=== PATIENT | male | born 1980 | race Caucasian/White ===

== ENCOUNTER 2019-05-15 17:30 | Emergency (ER) | payer SELFPAY ==
[2019-05-15 17:52] VITALS: BP 144/100
--- NOTE | 2019-05-15 19:27 | UC ---
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 HE THEN KICKED THE CURB ON THE WAY BACK ACCIDENTALLY AFTER WHICH HE DROPPED A BOX ON IT. WOKE UP THIS MORNING WITH INCREASING PAIN AND SWELLING OF THE FOOT. - History of Current Complaint Chief Complaint: UCLowerExtremity Stated Complaint: FOOT INJURY Time Seen by Provider: 05/15/19 18:36 Hx Obtained From: Patient Onset/Duration: Sudden Onset, Lasting Days - 1 DAY, Still Present Severity Initially: Moderate Severity Currently: Moderate Pain Intensity: 2 Pain Scale Used: 0-10 Numeric Aggravating Factor(s): Standing, Ambulation Alleviating Factor(s): Rest, Elevation Able to Bear Weight: Yes - ON HEEL WITH PAIN - Allergies/Home Medications Allergies/Adverse Reactions: Allergies Allergy/AdvReac Type Severity Reaction Status Date / Time codeine Allergy GI Upset Verified 05/15/19 17:54 Tree Nuts Allergy Swelling Verified 05/15/19 17:54 Home Medications: Home Medications Lisinopril TAB* [Prinivil TAB 10 MG*] 20 mg PO DAILY 05/15/19 [History Confirmed 05/15/19] PMH/Surg Hx/FS Hx/Imm Hx Cardiovascular History: Hypertension - Surgical History Surgical History: None - Family History Known Family History: Positive: Non-Contributory - Social History Alcohol Use: Weekly Alcohol Amount: 2 /week Substance Use Type: None Smoking Status (MU): Former Smoker Type: Cigarettes Review of Systems All Other Systems Reviewed And Are Negative: Yes Constitutional: Positive: Negative Respiratory: Positive: Negative Cardiovascular: Positive: Negative Gastrointestinal: Positive: Negative Musculoskeletal: Positive: Arthralgia, Edema Physical Exam Triage Information Reviewed: Yes Appearance: Well-Appearing, No Pain Distress, Well-Nourished Vital Signs: Initial Vital Signs Temp 97.6 F 05/15/19 17:47 Pulse 94 05/15/19 17:47 Resp 16 05/15/19 17:47 BP 144/100 05/15/19 17:47 Pulse Ox 99 05/15/19 17:47 Vital Signs Reviewed: Yes Eyes: Positive: Conjunctiva Clear ENT: Positive: Hearing grossly normal Neck: Positive: Supple Respiratory: Positive: No respiratory distress, No accessory muscle use Cardiovascular: Positive: Pulses Normal Musculoskeletal: Positive: Edema @, Other: - TTP RIGHT 5TH METATARSAL Neurological: Positive: Alert Psychological: Positive: Age Appropriate Behavior Skin: Negative: Rashes Diagnostics - Radiology RIGHT FOOT XRAYS Radiology Interpretation Completed By: ED Physician Summary of Radiographic Findings: OBLIQUE MILDLY DISPLACED FRACTURE OF THE FIFTH METATARSAL Lower Extremity Course/Dx - Course Course Of Treatment: X-RAY OF THE RIGHT FOOT SHOWS AN OBLIQUE MILDLY DISPLACED FRACTURE OF THE FIFTH METATARSAL ON MY INITIAL INTERPRETATION. RADIOLOGY READ PENDING. MATT WRAP AND CAM BOOT APPLIED BY RN. CRUTCHES DISPENSED. PATIENT IS TO BE NONWEIGHTBEARING. FOLLOW-UP WITH ORTHOPEDICS. IBUPROFEN NEEDED FOR DISCOMFORT. HYDROCODONE FOR BREAKTHROUGH PAIN. 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 REFERENCE #: [id number]. - Differential Dx/Diagnosis Provider Diagnosis: Displaced fracture of fifth metatarsal bone, right foot, initial encounter for closed fracture Discharge ED - Sign-Out/Discharge Documenting (check all that apply): Patient Departure All imaging exams completed and their final reports reviewed: No - Discharge Plan Condition: Stable Disposition: HOME Prescriptions: HYDROcodone/ACETAMIN 5-325 MG* [[place] 5-325 TAB*] 1 tab PO Q6H PRN #20 tab MDD 4 PRN Reason: Pain Ibuprofen TAB* [Motrin TAB* 600 MG] 1 tab PO Q6H PRN #30 tab PRN Reason: Pain Patient Education Materials: Foot Fracture in Adults (ED) Referrals: Luis Mayorga MD [Medical Doctor] - 2 Days Additional Instructions: RIGHT FOOT X-RAY SHOWS AN OBLIQUE MILDLY DISPLACED FRACTURE OF THE FIFTH METATARSAL ON MY INITIAL INTERPRETATION. WE WILL CALL YOU TOMORROW IF THE RADIOLOGY READ DIFFERS. WEAR THE CAM BOOT AT ALL TIMES UNTIL SEEN BY ORTHOPEDICS. YOU ARE TO BE NONWEIGHTBEARING. USE THE CRUTCHES TO HELP WITH MOBILITY. IBUPROFEN NEEDED FOR DISCOMFORT. HYDROCODONE FOR BREAKTHROUGH PAIN. REST, ICE, ELEVATE. - Billing Disposition and Condition Condition: STABLE Disposition: Home
--- NOTE | 2019-05-16 12:52 | UC ---
- Progress Note Progress Note: wet read correct Course/Dx - Diagnoses Provider Diagnoses: Displaced fracture of fifth metatarsal bone, right foot, initial encounter for closed fracture Discharge ED - Sign-Out/Discharge Documenting (check all that apply): Post-Discharge Follow Up All imaging exams completed and their final reports reviewed: Yes - Discharge Plan Condition: Stable Disposition: HOME Prescriptions: HYDROcodone/ACETAMIN 5-325 MG* [[place] 5-325 TAB*] 1 tab PO Q6H PRN #20 tab MDD 4 PRN Reason: Pain Ibuprofen TAB* [Motrin TAB* 600 MG] 1 tab PO Q6H PRN #30 tab PRN Reason: Pain Patient Education Materials: Foot Fracture in Adults (ED) Referrals: Luis Mayorga MD [Medical Doctor] - 2 Days Additional Instructions: RIGHT FOOT X-RAY SHOWS AN OBLIQUE MILDLY DISPLACED FRACTURE OF THE FIFTH METATARSAL ON MY INITIAL INTERPRETATION. WE WILL CALL YOU TOMORROW IF THE RADIOLOGY READ DIFFERS. WEAR THE CAM BOOT AT ALL TIMES UNTIL SEEN BY ORTHOPEDICS. YOU ARE TO BE NONWEIGHTBEARING. USE THE CRUTCHES TO HELP WITH MOBILITY. IBUPROFEN NEEDED FOR DISCOMFORT. HYDROCODONE FOR BREAKTHROUGH PAIN. REST, ICE, ELEVATE. - Billing Disposition and Condition Condition: STABLE Disposition: Home
== END 2019-05-15 19:39 | disposition home or self-care (01) ==
LOC: UCEAST 17:30
DX: S92.351A Displaced fracture of fifth metatarsal bone, right foot, initial encounter for closed fracture (principal); I10 Essential (primary) hypertension; Z79.899 Other long term (current) drug therapy; Z88.5 Allergy status to narcotic agent; Z87.891 Personal history of nicotine dependence; Z91.018 Allergy to other foods; W22.09XA Striking against other stationary object, initial encounter; Y93.02 Activity, running; Y92.9 Unspecified place or not applicable
CPT/HCPCS: 99203; G0463